=== PATIENT | male | born 1960 | race Caucasian/White ===

== ENCOUNTER → 2016-07-28 | Day surgery (SDC) | payer MEDICARE, OTHER ==
[~2016-07-28] MED LIST: AMOX500T PO; BUPIVACAINE/EPINEPHRINE 0.25% PF 30 ML VIAL ONE; ENBREL PO; FOLI1TAB PO; KETOROLAC TROMETHAMINE 30 MG/ML (IVP) VIAL IV PUSH ONE; LACTATED RINGER'S 1000 ML INJ 1,000 ML ONE; LIDOCAINE 1%/EPINEPHrine 1:100,000 SOLN 20 ML VIAL ONE; LORTA5 PO; METH2.5 PO; MORPHINE SULFATE 10 MG/ML INJ ONE; PRED5 PO; PROPOFOL 200 MG/20 ML AMP IV ONE; ceFAZolin INJ 1,000 MG VIAL ONE
--- NOTE | 2016-07-28 10:07 | TN ---
cc: GABBY KEVIN M.D. DATE OF SURGERY: 07/28/2016 PREOPERATIVE DIAGNOSIS Umbilical hernia. POSTOPERATIVE DIAGNOSIS Umbilical hernia. PROCEDURE Repair of umbilical hernia primarily, hernia measuring just about a centimeter. ANESTHESIA General. SURGEON Dr. Kevin. INDICATION This is a pleasant 56-year-old gentleman who had a symptomatic small umbilical hernia that was most painful when he stood for periods of time. Plans were made for repair. PROCEDURE The patient was taken to the operating room and placed in the supine position. After anesthesia his abdomen was prepped with Betadine. A timeout was done. He was given preoperative antibiotics. The hernia could be palpated, it is completely reduced with gentle pressure. We then make a curvilinear incision just beneath the umbilicus, after anesthetizing with Marcaine solution, we dissect down to the deep subcutaneous tissue identifying the hernia sac which is from the stalk of the umbilicus. This is completely reduced, some omentum is reduced as well. My finger just fit into the defect. He appears to have strong tissue circumferentially. For this reason just primarily repaired in a horizontal fashion using 0-Ethibond suture done about 1/2 cm on either side of the hernia defect and then stitches in between those stitches to reapproximate this completely. The base of the umbilicus was then tacked to the fascia using a 2-0 Vicryl and skin is closed with a 4-0 Vicryl. Steri-Strips were applied. Sterile bandage was applied. The patient tolerated the procedure well and had no immediate postop complication. Gabby Kevin MD JNICO/JONEL /9:53 AM /9:58 AM
== END | disposition home or self-care (01) ==
LOC: ESDC 07:32
PROVIDERS: ATTEND Surgery
DX: K42.9 Umbilical hernia without obstruction or gangrene (principal)
CPT/HCPCS: 00750; 49585; J0690; J1885; J2270; J3010; J7120